=== PATIENT | female | born 1980 | race Caucasian/White ===

== ENCOUNTER 2020-09-05 17:11 | Emergency (ER) | payer OTHER, SELFPAY ==
--- NOTE | ~2020-09-05 | XR_ITS ---
XR ankle LT min 3V DATE: 09/05/2020 17:34 INDICATION: Lateral malleolar pain. No known injury. TECHNIQUE: 4 views of left ankle COMPARISON: None FINDINGS: No fracture or dislocation of the ankle or disruption of the ankle mortise. Prominent plantar and posterior calcaneal enthesopathy. IMPRESSION: Prominent plantar and posterior calcaneal enthesopathy Reviewed, dictated and finalized at location A.
--- NOTE | ~2020-09-05 | XR_ITS ---
XR foot LT min 3V DATE: 09/05/2020 17:34 INDICATION: Lateral ankle and foot pain TECHNIQUE: 4 views COMPARISON: None FINDINGS: Prominent plantar and posterior calcaneal enthesopathy. 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 No fracture, dislocation, periosteal reaction or bone destruction. 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
--- NOTE | 2020-09-05 17:14 | ED.LOWEXIN ---
HPI - Extremity Injury (Lower) General Chief Complaint: Extremity Injury, Lower Stated Complaint: Injury to left Foot/Ankle Time Seen by Provider: 09/05/20 17:14 Source: patient and RN notes reviewed History of Present Illness HPI Narrative: Patient is a 39-year-old female who presents the urgent care with complaints of left foot and ankle pain. Patient states that the pain started on Tuesday evening. States that she had ran some errands that day but nothing out of the ordinary. Denies of any fall or known injury. States that she has fractured the foot in the past. States that she is elevated, used ice and Tylenol/ibuprofen without much improvement. Patient states that the pain is exacerbated with ambulation. No other acute complaints. No acute distress noted. Patient aware of the plan of care. Some parts of this dictation were generated by voice recognition software and may contain typographical and/or grammatical inaccuracies. Related Data Home Medications Medication Instructions Recorded Confirmed bromocriptine 2.5 mg PO BID 02/04/19 02/04/19 Allergies Allergy/AdvReac Type Severity Reaction Status Date / Time Penicillins Allergy Unknown Rash Verified 09/05/20 17:32 Review of Systems Review of Systems: Narrative: CONSTITUTIONAL: Denies fever, chills, or sweats. EYES: Denies visual changes, redness, or discharge. ENT: Denies rhinorrhea, congestion, sore throat, or otalgia. CARDIOVASCULAR: Denies chest pain, palpitations, or edema. RESPIRATORY: Denies cough or dyspnea. GASTROINTESTINAL: Denies abdominal pain, nausea, vomiting, or diarrhea. GENITOURINARY: Denies dysuria or hematuria. SKIN: Denies rash or itching. MUSCULOSKELETAL: Reports of left foot and ankle pain NEUROLOGIC: Denies headache, numbness, or weakness. All other systems reviewed are negative, except as documented in HPI. [facility] Past Medical History Medical History Prolactinoma Surgical History Surgical History H/O section Family History Family History Father Diabetes mellitus Hypertension Family history of sleep apnea Mother Diabetes mellitus Social History Social History Smoking status: Never smoker Comments At the time of my signature, I reviewed and agree with the nursing past medical, surgical, social, and family history. There is no relevant family history pertinent to the patient complaint. Exam Narrative: Exam Narrative: GENERAL: This is a well-nourished, well-developed patient, in no apparent distress. HEAD: normocephalic, atraumatic. EYES: PERRL. Sclera clear/white. Vision is grossly intact. EARS: External ears normal NOSE: External nose normal with no obvious nasal discharge, nares without redness, no rhinorrhea. THROAT: Mucous membranes moist NECK: Neck supple CARDIOVASCULAR: Regular rate and rhythm without murmurs, gallops, or rubs. RESPIRATORY: Clear to auscultation. Breath sounds equal bilaterally. No wheezes, rales, or rhonchi. SKIN: warm, intact with no suspicious lesions or rash, good texture and turgor. NEURO: awake, alert, and oriented to person, place and time. There were no obvious focal neurologic abnormalities. EXTREMITIES: Mild edema noted to the left lateral malleolus with mild tenderness without ecchymosis or notable fracture. No obvious deformity or injury noted to the left foot with mild reported pain to the medial aspect. Positive strong left pedal pulse with capillary refill less than 2 seconds. Range of motion within normal limits. Course Vital Signs Vital signs: Vital Signs Temperature 99.0 F 09/05/20 17:24 Pulse Rate 74 09/05/20 17:24 Respiratory Rate 20 09/05/20 17:24 Blood Pressure 125/78 09/05/20 17:24 Pulse Oximetry 98 09/05/20 17:24 Temperature 99.0 F
[2020-09-05 17:24] VITALS: BP 125/78; PULSE 74; RESP 20; TEMP 37.2; O2SAT 98
== END 2020-09-05 17:53 | disposition home or self-care (01) ==
PROVIDERS: Emergency Provider Nurse Practitioner Family; PCP Internal Medicine
DX: M19.072 Primary osteoarthritis, left ankle and foot (principal)
CPT/HCPCS: 73610; 73630; 99213; G0463

== ENCOUNTER 2020-12-17 17:17 | Emergency (ER) | payer OTHER, SELFPAY ==
[2020-12-17 17:27] VITALS: BP 136/72; PULSE 80; RESP 16; TEMP 36.8; O2SAT 99
--- NOTE | 2020-12-17 18:09 | ED.URI ---
HPI - URI/Sore Throat General Chief Complaint: Upper Respiratory Infection Stated Complaint: sore throat and ear pain Time Seen by Provider: 12/17/20 18:09 Source: patient Mode of arrival: ambulatory Limitations: no limitations History of Present Illness HPI Narrative: Gabriela Moreno is a 40 yo female with no PMH who is to [facility] with 5 days of right ear pain and jaw pain, has tried taking Tylenol occasionally with no real results. She states that has gotten better over the last 5 days Related Data Home Medications Medication Instructions Recorded Confirmed bromocriptine 2.5 mg PO BID 02/04/19 12/17/20 Allergies Allergy/AdvReac Type Severity Reaction Status Date / Time Penicillins Allergy Unknown Rash Verified 09/05/20 17:32 Review of Systems Review of Systems: CONSTITUTIONAL: Denies fever, chills, sweats. EYES: Denies visual changes, redness, discharge. ENT: Denies rhinorrhea, congestion, has sore throat, has right greater than left otalgia. CARDIOVASCULAR: Denies chest pain, palpitations, edema. RESPIRATORY: Denies dyspnea, wheezing, cough GASTROINTESTINAL: Denies abdominal pain, nausea, vomiting, diarrhea. GENITOURINARY: Denies dysuria, hematuria, abnormal discharge SKIN: Denies rash or itching. NEUROLOGIC: Denies numbness, or focal weakness. PSYCHIATRIC: Denies anxiety or depression. PMFSH Past Medical History Medical History No acute medical problems Prolactinoma Surgical History Surgical History H/O section Family History Family History Father Diabetes mellitus Hypertension Family history of sleep apnea Mother Diabetes mellitus Social History Social History Smoking status: Never smoker Comments At time of signature, I agree with nursing past medical, surgical, social and family history. There is no relevant family history pertinent to the presenting complaint. Exam Narrative: GENERAL: This is a well-nourished, well-developed patient, in mild distress. HEAD: normocephalic, atraumatic. EYES: Sclera clear/white. Vision is grossly intact. EARS: External ears normal, auditory canals erythema, R>L, and without drainage, TMs without perforation. Hearing grossly intact. NOSE: External nose normal without nasal discharge, nares without redness, no rhinorrhea. THROAT: Mucous membranes moist, posterior pharynx erythema with 2+ edema of tonsils NECK: Neck supple, mild tender CARDIOVASCULAR: Regular rate and rhythm without murmurs, gallops, or rubs. RESPIRATORY: Clear to auscultation. Breath sounds equal bilaterally. No wheezes, rales, or rhonchi. GASTROINTESTINAL: Abdomen soft, SKIN: warm, intact with no suspicious lesions or rash, good texture and turgor. NEURO: awake, alert, and oriented to person, place and time. There were no obvious focal neurologic abnormalities. Steady gait EXTREMITIES: Normal range of motion. BACK: Nontender without deformity Course Course Emergency Course: Patient comes with 5 days of sore throat and right ear pain Strep test done Started on prednisone, Zyrtec, polymyxin eardrops Vital Signs Vital signs: Vital Signs Temperature 98.2 F 12/17/20 17:27 Pulse Rate 80 12/17/20 17:27 Respiratory Rate 16 12/17/20 17:27 Blood Pressure 136/72 12/17/20 17:27 Pulse Oximetry 99 12/17/20 17:27 Temperature 98.2 F 12/17/20 17:27 Pulse Rate 80 12/17/20 17:27 Respiratory Rate 16 12/17/20 17:27 Blood Pressure 136/72 12/17/20 17:27 Pulse Oximetry 99 12/17/20 17:27 MDM - URI/Sore Throat Differential Diagnosis Differential diagnosis: Likely upper respiratory infection, otitis media, viral infection, bronchitis, pharyngitis and other Lab Data Labs: Strep Screen Presumptive Negati
== END 2020-12-17 18:42 | disposition home or self-care (01) ==
PROVIDERS: Emergency Provider Nurse Practitioner; PCP Internal Medicine
DX: H92.01 Otalgia, right ear (principal); J02.9 Acute pharyngitis, unspecified
CPT/HCPCS: 87081; 87880; 99213; G0463

== ENCOUNTER 2022-02-08 10:10 | Emergency (ER) | payer OTHER, SELFPAY ==
[2022-02-08 10:16] VITALS: BP 110/55; PULSE 62; RESP 16; TEMP 36.8; O2SAT 98
--- NOTE | 2022-02-08 11:11 | ED.URI ---
HPI - URI/Sore Throat General Chief Complaint: Upper Respiratory Infection Stated Complaint: cough in chest and back Time Seen by Provider: 02/08/22 11:09 Source: patient and RN notes reviewed Mode of arrival: ambulatory Limitations: no limitations History of Present Illness HPI Narrative: 41-year-old female presents with concern for 4 day history of cough. She reports some chest burning with coughing. She denies nasal congestion, rhinorrhea, sore throat, fever, aches, chills, sweats. Denies known sick contacts. Did not take any medication at home for her symptoms MD elicited complaint: cough Related Data Home Medications Medication Instructions Recorded Confirmed bromocriptine 2.5 mg tablet 2.5 mg PO BID 02/04/19 09/22/21 Allergies Allergy/AdvReac Type Severity Reaction Status Date / Time Penicillins Allergy Unknown Rash Verified 09/22/21 09:35 Review of Systems Review of Systems: CONSTITUTIONAL: Denies malaise, chills, sweats, or fever. EYES: Denies visual changes, redness, or discharge. ENT: Denies rhinorrhea, congestion, sinus pain, otalgia and sore throat. CARDIOVASCULAR: Denies chest pain, palpitations, or edema. RESPIRATORY: Reports dry cough. Denies dyspnea. GASTROINTESTINAL: Denies abdominal pain, nausea, vomiting, diarrhea SKIN: Denies rash or itching. MUSCULOSKELETAL: Denies myalgia. NEUROLOGIC: Denies headache. All systems reviewed & are unremarkable except as noted in HPI and below PMFSH Past Medical History Medical History No acute medical problems Prolactinoma Surgical History Surgical History H/O section Family History Family History Father Diabetes mellitus Hypertension Family history of sleep apnea Mother Diabetes mellitus Social History Social History Smoking status: Never smoker Comments At time of signature, agree with nursing past medical, surgical, social and family history. There is no relevant family history pertinent to the presenting complaint Exam Narrative: GENERAL: Well-appearing, well-nourished, and in no acute distress. HEAD: Normocephalic EYES: PERRLA, conjunctivae clear ENT: Nares clear, turbinates edematous and erythematous, clear discharge. Mucous membranes moist. TM pearly hoffman with sharp light reflex bilaterally; no tragal tenderness. Oropharynx not erythematous without lesions. Tonsils not enlarged and without exudate, no drooling, no hoarseness, no trismus, uvula midline. NECK: Supple. No lymphadenopathy CHEST: Clear to auscultation, breath sounds equal. No wheezing, rhonchi, rales, or stridor. No respiratory distress, speaks in full sentences. HEART: Regular rate and rhythm. No murmur heard. SKIN: Warm, dry, no rash. NEURO: Alert and oriented x3. PSYCH: Normal mood and affect Course Course Emergency Course: Patient is aware of diagnosis, understands and agrees to treatment plan. Anticipatory guidance given. Patient agrees to follow-up as directed and is aware of reasons to seek care at the emergency department. Portions of this record may have been created with voice recognition software Level of Care: Express [facility] Visit Vital Signs Vital signs: Vital Signs Temperature 98.3 F 02/08/22 10:16 Pulse Rate 62 02/08/22 10:16 Respiratory Rate 16 02/08/22 10:16 Blood Pressure 110/55 L 02/08/22 10:16 Pulse Oximetry 98 02/08/22 10:16 Oxygen Delivery Room Air 02/08/22 10:16 Temperature 98.3 F 02/08/22 10:16 Pulse Rate 62 02/08/22 10:16 Respiratory Rate 16 02/08/22 10:16 Blood Pressure 110/55 L 02/08/22 10:16 Pulse Oximetry 98 02/08/22 10:16 Oxygen Delivery Room Air 02/08/22 10:16 Reviewed. MDM - URI/Sore Throat MDM Narrative Medical decision making narrative: Differential brenda
== END 2022-02-08 11:22 | disposition home or self-care (01) ==
PROVIDERS: Emergency Provider Nurse Practitioner; PCP Internal Medicine
DX: R05.9 Cough, unspecified (principal)
CPT/HCPCS: 99213; G0463

== ENCOUNTER 2022-03-23 08:03 | Emergency (ER) | payer OTHER, SELFPAY ==
[2022-03-23 08:11] VITALS: BP 123/74; PULSE 97; RESP 16; TEMP 36.6; O2SAT 100
[2022-03-23 08:14] VITALS: BP 123/74; PULSE 97; RESP 16; TEMP 36.6; O2SAT 100
--- NOTE | 2022-03-23 08:14 | ED.URI ---
HPI - URI/Sore Throat General Chief Complaint: Upper Respiratory Infection Stated Complaint: throat and ear Time Seen by Provider: 03/23/22 08:14 Source: patient Mode of arrival: ambulatory Limitations: no limitations History of Present Illness HPI Narrative: 41 y/o female presented for c/o sore throat for 4 days and right ear pain for 2 days. Reports sinus drainage at the onset. Denies sob, wheezing, n/v/d/f/c. Not taking anything for symptoms. Denies sick contacts. Related Data Home Medications Medication Instructions Recorded Confirmed bromocriptine 2.5 mg tablet 2.5 mg PO BID 02/04/19 03/23/22 Allergies Allergy/AdvReac Type Severity Reaction Status Date / Time Penicillins Allergy Unknown Rash Verified 03/23/22 08:06 Review of Systems Review of Systems: per HPI All systems reviewed & are unremarkable except as noted in HPI and below PMFSH Past Medical History Medical History No acute medical problems Prolactinoma Surgical History Surgical History H/O section Family History Family History Father Diabetes mellitus Hypertension Family history of sleep apnea Mother Diabetes mellitus Social History Social History Smoking status: Never smoker Comments At time of signature, agree with nursing past medical, surgical, social and family history. There is no relevant family history pertinent to the presenting complaint Exam Narrative: GENERAL: Well-appearing, well-nourished, and in no acute distress. HEAD: Normocephalic EYES: PERRLA, conjunctivae clear ENT: Nares clear. Mucous membranes moist. Left TM pearly hoffman with dull light reflex; Right TM erythematous and bulging; no tragal tenderness. Oropharynx erythematous Tonsils enlarged, chronically per patient, without exudate, no drooling, no hoarseness, no trismus, uvula midline. NECK: Supple. No lymphadenopathy CHEST: Clear to auscultation, breath sounds equal. HEART: Regular rate and rhythm. No murmur heard. SKIN: Warm, dry, no rash. NEURO: Alert and oriented x3. PSYCH: Normal mood and affect Course Course Emergency Course: Patient is aware of diagnosis, understands and agrees to treatment plan. Anticipatory guidance given. Patient agrees to follow-up as directed and is aware of reasons to seek care at the emergency department. Portions of this record may have been created with voice recognition software Level of Care: Express Care Visit Vital Signs Vital signs: Vital Signs Temperature 97.8 F 03/23/22 08:11 Pulse Rate 97 03/23/22 08:11 Respiratory Rate 16 03/23/22 08:11 Blood Pressure 123/74 03/23/22 08:11 Pulse Oximetry 100 03/23/22 08:11 Oxygen Delivery Room Air 03/23/22 08:11 Temperature 97.8 F 03/23/22 08:11 Pulse Rate 97 03/23/22 08:11 Respiratory Rate 16 03/23/22 08:11 Blood Pressure 123/74 03/23/22 08:11 Pulse Oximetry 100 03/23/22 08:11 Oxygen Delivery Room Air 03/23/22 08:11 Reviewed MDM - URI/Sore Throat MDM Narrative Medical decision making narrative: Result of strep reviewed with patient. Advised supportive measures and signs/symptoms to go to the ER. Pt is appropriate for outpt treatment and f/u. Differential Diagnosis Differential diagnosis: Likely upper respiratory infection, otitis media, sinusitis, viral infection and pharyngitis Discharge Plan Discharge Clinical Impression: Otitis media Qualifiers: Otitis media type: suppurative Chronicity: acute Laterality: right Recurrence: non-recurrent Spontaneous tympanic membrane rupture: without spontaneous rupture Qualified Code(s): H66.001 - Acute suppurative otitis media without spontaneous rupture of ear drum, right ear Patient Disposition: Home, Self-Care Condition: Stable Instruc
== END 2022-03-23 08:28 | disposition home or self-care (01) ==
PROVIDERS: Emergency Provider Nurse Practitioner Family; PCP Internal Medicine
DX: H66.001 Acute suppurative otitis media without spontaneous rupture of ear drum, right ear (principal)
CPT/HCPCS: 87081; 87880; 99213; G0463

== ENCOUNTER 2022-11-22 12:11 | Emergency (ER) | payer OTHER, SELFPAY ==
--- NOTE | ~2022-11-22 | XR_ITS ---
EXAMINATION: XR abdomen/kub 1V INDICATION: Right flank pain and hematuria TECHNIQUE: Supine views of the abdomen were obtained on 2 radiographs. COMPARISON: None FINDINGS: The bowel gas pattern is normal. No definite urolithiasis is identified. There is a moderat e volume of colonic stool. The visualized osseous structures are unremarkable. An IUD is noted. IMPRESSION: 1. No radiographic correlate for the patient's symptoms. Reviewed, dictated and finalized at location A.
[2022-11-22 12:48] VITALS: BP 142/90; PULSE 85; RESP 16; TEMP 36.4; O2SAT 98
--- NOTE | 2022-11-22 13:58 | ED.FEMALEGU ---
HPI - Female Genitourinary General Chief complaint: Urogenital-Female Stated complaint: BACK PAIN/URINARY PROBLEMS Source: patient and RN notes reviewed Mode of arrival: ambulatory Limitations: no limitations History of Present Illness HPI Narrative: 41-year-old female presented for complaint of right flank pain and feeling like she cannot empty her bladder. Onset yesterday. Endorses urinary pressure, frequency and possible blood in urine. Denies dysuria. Rates flank pain 5/10. Denies associated nausea, vomiting, diarrhea, fevers or chills. Not taking anything for symptoms. Denies hx UTI's or renal stones. Related Data Home Medications Medication Instructions Recorded Confirmed bromocriptine 2.5 mg tablet 2.5 mg PO BID 02/04/19 11/22/22 Allergies Allergy/AdvReac Type Severity Reaction Status Date / Time Penicillins Allergy Unknown Rash Verified 11/22/22 12:46 Review of Systems Review of Systems: CONSTITUTIONAL: Denies body aches, fever, chills, or sweats. CARDIOVASCULAR: Denies chest pain, palpitations, or edema. RESPIRATORY: Denies cough or dyspnea. GASTROINTESTINAL: Denies abdominal pain, nausea, vomiting, or diarrhea. GENITOURINARY: Reports frequency, urgency, hematuria, flank pain SKIN: Denies rash, itching, or wounds. MUSCULOSKELETAL: Denies back pain or myalgia. [facility] Past Medical History Medical History No acute medical problems Prolactinoma Surgical History Surgical History H/O section Family History Family History Father Diabetes mellitus Hypertension Family history of sleep apnea Mother Diabetes mellitus Social History Social History Smoking status: Never smoker Alcohol use details: socially, once a year Substance use: never Substance use type: does not use Living arrangements: with family Gender identity (if verbalized by the patient): Female Comments At time of signature, I have reviewed and agree with nursing past medical, surgical, social and family history unless otherwise noted. Please see nursing chart for further information. There is no relevant family history pertinent to the presenting complaint Exam Narrative: GENERAL: appears in mild pain, in no acute distress. HEAD: Normocephalic EYES: EOMI. . ENT: Mucous membranes pink and moist. NECK: Normal AROM. Supple. CHEST: No respiratory distress. Clear to auscultation. HEART: Regular rate and rhythm. ABDOMEN: Soft, nontender, nondistended, normal active bowel sounds. Right CVA tenderness MUSCULOSKELETAL: No bony tenderness. SKIN: Warm, dry, no rash. NEURO: No focal deficits. Alert and oriented x3. Gait steady. PSYCH: Normal affect. Course Course Emergency Course: Patient is aware of diagnosis, understands and agrees to treatment plan. Anticipatory guidance given. Patient agrees to follow-up as directed and is aware of reasons to seek care at the emergency department. Portions of this record may have been created with voice recognition software Level of Care: Express Care Visit Vital Signs Vital signs: Vital Signs Temperature 97.6 F 11/22/22 12:48 Pulse Rate 85 11/22/22 12:48 Respiratory Rate 16 11/22/22 12:48 Blood Pressure 142/90 H 11/22/22 12:48 Pulse Oximetry 98 11/22/22 12:48 Temperature 97.6 F 11/22/22 12:48 Pulse Rate 85 11/22/22 12:48 Respiratory Rate 16 11/22/22 12:48 Blood Pressure 142/90 H 11/22/22 12:48 Pulse Oximetry 98 11/22/22 12:48 Reviewed MDM - Female Genitourinary MDM Narrative Medical decision making narrative: Results of urine reviewed with patient. 3+ blood, 3+ protein, 1+ leuk. KUB results reviewed. Discussed physical exam findings. Advised supportive measures and signs/symptoms to go to
== END 2022-11-22 14:53 | disposition home or self-care (01) ==
PROVIDERS: Emergency Provider Nurse Practitioner Family; PCP Internal Medicine
DX: N39.0 Urinary tract infection, site not specified (principal)
CPT/HCPCS: 74018; 81003; 87086; 87088; 87147; 99213; G0463

== ENCOUNTER 2023-02-01 08:36 | Emergency (ER) | payer OTHER, SELFPAY ==
[2023-02-01 08:51] VITALS: BP 121/74; PULSE 81; RESP 16; TEMP 36.4; O2SAT 99
--- NOTE | 2023-02-01 08:59 | ED.EYEPROB ---
HPI - Eye Problem General Chief complaint: Eye Problems Stated complaint: EYES BURNING Time Seen by Provider: 02/01/23 09:16 Source: patient and RN notes reviewed Mode of arrival: ambulatory Limitations: no limitations History of Present Illness HPI Narrative: 42-year-old female presents with concern for burning of both eyes. She reports symptoms started with some itching last week while she had her contact lenses in, she took them out for couple days and occasionally tried to put them back in over the weekend but her eyes burn. She reports she has tried several natn-jbw-svslorn remedies such as allergy drops, allergy tablets with worsening symptoms. She denies vision changes. She denies purulent drainage. She reports watery drainage. She reports light sensitivity. MD chief complaint: other (eye burning) Related Data Home Medications Medication Instructions Recorded Confirmed bromocriptine 2.5 mg tablet 2.5 mg PO BID 02/04/19 11/22/22 Allergies Allergy/AdvReac Type Severity Reaction Status Date / Time Penicillins Allergy Unknown Rash Verified 11/22/22 12:46 Review of Systems Review of Systems: CONSTITUTIONAL: Denies malaise, chills, sweats, or fever. EYES: Denies visual changes. Reports bilateral redness, irritation, watery discharge. ENT: Denies rhinorrhea, congestion, sinus pain, otalgia or sore throat. SKIN: Denies rash or itching. NEUROLOGIC: Denies numbness, weakness, or headache. PSYCHIATRIC: Denies anxiety or depression. All systems reviewed & are unremarkable except as noted in HPI and below PMFSH Past Medical History Medical History No acute medical problems Prolactinoma Surgical History Surgical History H/O section Family History Family History Father Diabetes mellitus Hypertension Family history of sleep apnea Mother Diabetes mellitus Social History Social History Smoking status: Never smoker Alcohol use details: socially, once a year Substance use: never Substance use type: does not use Living arrangements: with family Gender identity (if verbalized by the patient): Female Comments At time of signature, agree with nursing past medical, surgical, social and family history. There is no relevant family history pertinent to the presenting complaint Exam Narrative: GENERAL: Well-appearing, well-nourished, and in no acute distress. HEAD: Normocephalic, atraumatic. EYES: PERRLA and EOMI. No nystagmus. Bilateral conjunctivae and sclera injected with watery discharge. Wood's lamp exam unremarkable. Upper and lower eyelid unremarkable, no periorbital edema noted ENT: Nares clear, turbinates pink, no rhinorrhea or epistaxis. Mucous membranes moist. TM pearly hoffman with sharp light reflex bilaterally; no tragal tenderness. NECK: Supple. CHEST: No respiratory distress. Speaks in full sentences. HEART: Regular rate and rhythm. SKIN: Warm, dry, no visible rash. NEURO: Alert and oriented x3. PSYCH: Normal mood and affect Course Course Emergency Course: Patient is aware of diagnosis, understands and agrees to treatment plan. Anticipatory guidance given. Patient agrees to follow-up as directed and is aware of reasons to seek care at the emergency department. Portions of this record may have been created with voice recognition software Level of Care: Express Care Visit Vital Signs Vital signs: Vital Signs Temperature 97.5 F L 02/01/23 08:51 Pulse Rate 81 02/01/23 08:51 Respiratory Rate 16 02/01/23 08:51 Blood Pressure 121/74 02/01/23 08:51 Pulse Oximetry 99 02/01/23 08:51 Temperature 97.5 F L 02/01/23 08:51 Pulse Rate 81 02/01/23 08:51 Respiratory Rate 16 02/01/23 08:51 Blood Pressure 121/74 02/01/23 08:51
== END 2023-02-01 09:34 | disposition home or self-care (01) ==
PROVIDERS: Emergency Provider Nurse Practitioner; PCP Internal Medicine
DX: H57.13 Ocular pain, bilateral (principal)
CPT/HCPCS: 99213; A9270; G0463